=== PATIENT | male | born 1975 | race Caucasian/White ===

== ENCOUNTER 2017-07-05 19:24 | Emergency (ER) | payer BC ==
[2017-07-05] MEDS: ONDANSETRON (ODT) 4 MG TAB ODT (19:44)
[2017-07-05] MEDS: IBUPROFEN 800 MG TAB PO (19:44)
[2017-07-05] MEDS: HYDROCODONE/APAP (10/325) TAB PO (19:44)
== END 2017-07-05 21:07 | disposition home or self-care (01) ==
LOC: E/R 19:24
DX: M70.21 Olecranon bursitis, right elbow (principal); F17.210 Nicotine dependence, cigarettes, uncomplicated; Y93.9 Activity, unspecified
CPT/HCPCS: 73080; 73080-RT; 99284-25

== ENCOUNTER 2018-04-22 01:59 | Emergency (ER) | payer BC ==
[2018-04-22] MEDS: KETOROLAC 60 MG INJ IM (02:56)
[2018-04-22 03:07] LABS: ADD MAN DIFF? NO
[2018-04-22 03:22] LABS: WHITE BLOOD COUNT 9.2 10^3/ul (4.8-10.8)
[2018-04-22 03:22] LABS: BASOPHIL # 0.1 10^3/ul (0.0-0.1); BASOPHILS % 0.5 % (0.0-2.0); EOSINOPHILS # 0.3 10^3/ul (0.0-0.5); EOSINOPHILS % 3.3 % (0.0-7.0); HEMATOCRIT 39.6 % (42.0-52.0); HEMOGLOBIN 14.1 g/dl (14.0-18.0); LYMPHOCYTES # 2.5 10^3/ul (0.8-2.9); LYMPHOCYTES % 27.2 % (15.0-51.0); MEAN CORPUSCULAR HGB CONC 35.6 g/dl (32.0-37.0); MEAN CORPUSCULAR VOLUME 89.8 fl (82.0-101.0); MEAN PLATELET VOLUME 9.6 fl (7.4-10.4); MONOCYTE # 0.7 10^3/ul (0.3-0.9); MONOCYTES % 7.6 % (0.0-11.0); NEUTROPHIL # 5.6 10^3/ul (1.6-7.5); PLATELET COUNT 216 10^3/UL (140-415); RED BLOOD COUNT 4.41 10^6/ul (4.70-6.10); RED CELL DISTRIBUTION WIDTH 13.2 % (11.5-14.5)
[2018-04-22 03:27] LABS: ALANINE AMINOTRANSFERASE 21 IU/L (13-69); ALBUMIN 4.5 g/dl (3.3-4.9); ALKALINE PHOSPHATASE 73 IU/L (42-121); ANION GAP 7 (5-13); ASPARTATE AMINO TRANSFERASE 20 IU/L (15-46); BILIRUBIN,INDIRECT 0.3 mg/dl (0-1.1); BILIRUBIN,TOTAL 0.3 mg/dl (0.2-1.3); BLOOD UREA NITROGEN 17 mg/dl (7-20); CALCIUM 9.4 mg/dl (8.4-10.2); CARBON DIOXIDE 25 mmol/L (21-31); CHLORIDE 108 mmol/L (97-110); CREATININE 1.01 mg/dl (0.61-1.24); Estimated GFR > 60 mL/min (>60); GLUCOSE 109 mg/dl (70-220); POTASSIUM 4.3 mmol/L (3.5-5.1); SODIUM 140 mmol/L (135-144); TOTAL PROTEIN 7.7 g/dl (6.1-8.1)
[2018-04-22] MEDS: HYDROCODONE/APAP (5/325) TAB PO (04:13)
[2018-04-22 04:25] LABS: URINE PH (Dip) POC 5.5 (5.0-8.5)
[2018-04-22 04:25] LABS: URINE BLOOD (Dip) POC Negative (NEGATIVE); URINE GLUCOSE (Dip) POC Negative (NEGATIVE); URINE KETONES (Dip) POC Trace (NEGATIVE); URINE LEUKOCYTE EST (Dip) POC Negative (NEGATIVE); URINE NITRITE (Dip) POC Negative (NEGATIVE); URINE TOTAL PROTEIN POC Negative (NEGATIVE)
== END 2018-04-22 04:49 | disposition home or self-care (01) ==
LOC: FTE 01:59
DX: J98.11 Atelectasis (principal); F17.210 Nicotine dependence, cigarettes, uncomplicated
CPT/HCPCS: 71046; 76775; 80053; 81003; 85025; 96372; 99285-25